=== PATIENT | male | born 1975 ===

== ENCOUNTER 2025-04-09 06:18 | Day surgery (SDC) | payer OTHER, SELFPAY | END 2025-04-09 11:03 | disposition home or self-care (01) | LOC: GI 06:18 | PROVIDERS: ATTENDING PHYSICIAN Internal Medicine Gastroenterology | DX: Z12.11 Encounter for screening for malignant neoplasm of colon (principal); K64.8 Other hemorrhoids; K57.30 Diverticulosis of large intestine without perforation or abscess without bleeding; K63.5 Polyp of colon; K31.89 Other diseases of stomach and duodenum | CPT/HCPCS: 45380; 88305 ==